=== PATIENT | female | born 1980 | race Caucasian/White ===

== ENCOUNTER → 2017-03-15 | Outpatient (REF) | payer BC ==
[~2017-03-15] MED LIST: /DULO30CA; /FEXO18TA; ACET500C; ACET500T2; ALBU17IN2; ALLEGRA PO; ALLEGRA180 PO; ALTA10CA; BABY81CH; CORE12.5; CYMBALTA30 PO; DARVOCET-N PO; EFFEXORXL7 PO; FLON0.05; FLONASE NASAL SPRAY; FLONASESPR NASAL; FURO20TA2; GLUC500T; IBUP600T; LEVAQUI500 PO; LOESTRIN; METFORM500 PO; NAPROS500 PO; PROZAC20 PO; SPIR25TA2; VICODIN PO; ZYRTEC10 PO
== END ==
LOC: M SFHCCLAY 14:23
PROVIDERS: ATTEND Family Medicine
DX: Z12.4 Encounter for screening for malignant neoplasm of cervix (principal)

== ENCOUNTER → 2017-08-17 | Outpatient (CLI) | payer BC, OTHER | LOC: M LRY 12:36 | DX: S89.92XA Unspecified injury of left lower leg, initial encounter (principal); W17.2XXA Fall into hole, initial encounter; Y92.9 Unspecified place or not applicable; M25.562 Pain in left knee | CPT/HCPCS: 73564 ==

== ENCOUNTER → 2017-08-23 | Outpatient (REF) | payer BC | LOC: M LAB REF 13:24 | DX: R30.0 Dysuria (principal) | CPT/HCPCS: 87086 ==

== ENCOUNTER 2017-08-30 09:28 | Emergency (ER) | payer OTHER, BC | END 2017-08-30 10:09 | disposition home or self-care (01) | LOC: M ED 09:28 | DX: S80.12XA Contusion of left lower leg, initial encounter (principal); M25.472 Effusion, left ankle; W13.3XXA Fall through floor, initial encounter; Y92.9 Unspecified place or not applicable; Y93.9 Activity, unspecified; Y99.0 Civilian activity done for income or pay; G43.909 Migraine, unspecified, not intractable, without status migrainosus; I50.9 Heart failure, unspecified; J45.909 Unspecified asthma, uncomplicated; E28.2 Polycystic ovarian syndrome; Z79.82 Long term (current) use of aspirin; Z79.899 Other long term (current) drug therapy | CPT/HCPCS: 99283 ==

== ENCOUNTER → 2017-10-09 | Outpatient (REF) | payer OTHER, BC ==
[2017-10-09 15:02] LABS: CHLAMYDIA DNA AMPLIFICATION NEGATIVE (NEGATIVE); GC DNA AMPLIFICATION NEGATIVE (NEGATIVE)
== END ==
LOC: M LAB REF 13:15
DX: Z11.3 Encounter for screening for infections with a predominantly sexual mode of transmission (principal)